=== PATIENT | female | born 1990 | race Caucasian/White ===

== ENCOUNTER 2017-06-20 00:21 | Emergency (ER) | payer OTHER ==
[~2017-06-20] VITALS: Ht 162.6 cm; Wt 88.0 kg
[2017-06-20] MEDS ORDERED: ZOFR20TA PO (00:32)
[2017-06-20] MEDS ORDERED: BENA25CA4 PO (00:32)
[2017-06-20] MEDS ORDERED: DULO30CA PO (00:32)
[2017-06-20] MEDS ORDERED: PRE-TAB3 PO (00:32)
[2017-06-20 01:23] LABS: BASO % 0.3 % (0.0-1.0); EOS # 0.2 10^3/uL (0.0-0.50); EOS % 1.7 % (0.0-3.0); IMMATURE GRANULOCYTE % 0.4 % (0-0); MEAN CORPUSCULAR HEMOGLOBIN 28.9 pg (27.0-33.0); MEAN CORPUSCULAR HGB CONC 33.4 g/dl (32.0-36.5); MEAN CORPUSCULAR VOLUME 86.6 fl (80.0-96.0); MONO # 0.6 10^3/uL (0.0-0.8); MONO % 5.5 % (0.0-5.0); NEUTROPHILS # 6.6 10^3/uL (1.8-7.7); NEUTROPHILS % 63.1 % (36.0-66.0); PLATELET COUNT, AUTOMATED 270 10^3/uL (150-450); RED CELL DISTRIBUTION WIDTH 12.3 % (11.5-14.5); WHITE BLOOD COUNT 10.4 10^3/uL (4.0-10.0)
[2017-06-20 03:31] VITALS: BP 110/53
--- NOTE | 2017-06-20 03:50 | REPUSA ---
CLINICAL HISTORY: Vaginal bleeding. TECHNIQUE: Transabdominal ultrasound of the pelvis was performed. FINDINGS: The uterus measures 7.9x4.2x5.6 cm. Anteverted uterus. Single intrauterine gestation. Grabill-rump length measures 7.3 mm. This corresponds to an estimated gestational age of 6 weeks and 5 days. Absent cardiac activity. Left lateral subchorionic hemorrhage measuring 3.5 cm. The right ovary measures 4.1x2.2x2.8 cm. The left ovary measures 3.5x2.3x2.9 cm. 1.8 cm left ovarian corpus luteum cyst. IMPRESSION: Single intrauterine gestation. Absent cardiac activity. Left lateral subchorionic hemorrhage. Left ovarian corpus luteum cyst.
== END 2017-06-20 03:32 | disposition home or self-care (01) ==
LOC: M ED 00:21
DX: O20.0 Threatened abortion (principal); Z3A.10 10 weeks gestation of pregnancy; Z79.899 Other long term (current) drug therapy; Z86.2 Personal history of diseases of the blood and blood-forming organs and certain disorders involving the immune mechanism; Z91.040 Latex allergy status; L23.1 Allergic contact dermatitis due to adhesives

== ENCOUNTER 2017-06-22 16:24 | Emergency (ER) | payer OTHER ==
[~2017-06-22] VITALS: Ht 162.6 cm; Wt 87.7 kg
[~2017-06-22 16:24] MED LIST: BENA25CA4 PO; DULO30CA PO; PRE-TAB3 PO; ZOFR20TA PO
[2017-06-22] MEDS ORDERED: TYLE1TAB5 PO (16:36)
[2017-06-22] MEDS ORDERED: PERCOCET 5MG/325MG TAB PO ONE (17:45)
[2017-06-22] MEDS ORDERED: ONDANSETRON 4 MG ORAL DISINTEGRATING TAB (S0181) PO ONE (17:45)
[2017-06-22 17:50] LABS: MEAN CORPUSCULAR HEMOGLOBIN 28.2 pg (27.0-33.0); MEAN CORPUSCULAR HGB CONC 32.6 g/dl (32.0-36.5); MEAN CORPUSCULAR VOLUME 86.6 fl (80.0-96.0); PLATELET COUNT, AUTOMATED 267 10^3/uL (150-450); RED CELL DISTRIBUTION WIDTH 12.3 % (11.5-14.5); WHITE BLOOD COUNT 8.9 10^3/uL (4.0-10.0)
[2017-06-22 18:01] LABS: CONTROL LINE HCG INT CTR LINE PRESENT
[2017-06-22 18:39] LABS: HCG, SERUM QUANTITATIVE 3380 MIU/ML
[2017-06-22 18:45] VITALS: BP 142/74
[2017-06-22] MEDS ORDERED: PERC5TAB12 PO (18:46)
[2017-06-22] MEDS ORDERED: OXYCODONE/APAP 5MG/325MG(BULK FOR ED) 1 TABLET PO ONE (19:00)
== END 2017-06-22 19:08 | disposition home or self-care (01) ==
LOC: M ED 16:24
DX: O03.4 Incomplete spontaneous abortion without complication (principal); Z79.899 Other long term (current) drug therapy; Z91.040 Latex allergy status; L23.1 Allergic contact dermatitis due to adhesives

== ENCOUNTER 2017-08-01 13:16 | Emergency (ER) | payer OTHER ==
[~2017-08-01] VITALS: Ht 163.8 cm; Wt 89.5 kg
[~2017-08-01 13:16] MED LIST changes: +PERC5TAB12 PO; +TYLE1TAB5 PO
[2017-08-01] MEDS ORDERED: SUDA30TA8 PO (13:54)
[2017-08-01] MEDS ORDERED: ACET1TAB17 PO (13:54)
[2017-08-01] MEDS ORDERED: NAPR500T3 PO (13:54)
[2017-08-01] MEDS ORDERED: MUCI600T37 PO (13:54)
[2017-08-01] MEDS ORDERED: CLON0.5T PO (13:54)
[2017-08-01] MEDS ORDERED: MORPHINE 4 MG/ML 1ML SYRINGE IV ONE (15:45)
[2017-08-01] MEDS ORDERED: METOCLOPRAMIDE INJ 10MG/2ML VIAL (J2765) IV ONE (15:45)
[2017-08-01 17:01] LABS: BASO % 0.5 % (0.0-1.0); EOS # 0.2 10^3/uL (0.0-0.50); EOS % 2.1 % (0.0-3.0); IMMATURE GRANULOCYTE % 0.3 % (0-0); LYMPH # 2.9 10^3/uL (1.5-6.5); LYMPH % 33.1 % (24.0-44.0); MEAN CORPUSCULAR HEMOGLOBIN 28.5 pg (27.0-33.0); MEAN CORPUSCULAR HGB CONC 32.6 g/dl (32.0-36.5); MEAN CORPUSCULAR VOLUME 87.2 fl (80.0-96.0); MONO # 0.6 10^3/uL (0.0-0.8); MONO % 6.5 % (0.0-5.0); NEUTROPHILS % 57.5 % (36.0-66.0); PLATELET COUNT, AUTOMATED 286 10^3/uL (150-450); RED CELL DISTRIBUTION WIDTH 12.5 % (11.5-14.5); WHITE BLOOD COUNT 8.7 10^3/uL (4.0-10.0)
[2017-08-01 17:16] LABS: ANION GAP 6 MEQ/L (8-16); BLOOD UREA NITROGEN 8 MG/DL (7-18); CALCIUM LEVEL 8.9 MG/DL (8.5-10.1); CARBON DIOXIDE LEVEL 30 MEQ/L (21-32); CHLORIDE LEVEL 105 MEQ/L (98-107); CREATININE FOR GFR 0.91 MG/DL (0.55-1.02); GLOMERULAR FILTRATION RATE > 60.0 (>60); GLUCOSE, FASTING 95 MG/DL (70-105); POTASSIUM SERUM 4.2 MEQ/L (3.5-5.1); SODIUM LEVEL 141 MEQ/L (136-145)
[2017-08-01 17:20] LABS: HCG, SERUM QUANTITATIVE < 1.0 MIU/ML
[2017-08-01 17:35] LABS: CONTROL LINE UCG INT CTR LINE PRESENT
--- NOTE | 2017-08-01 18:14 | REP ---
NON-OB PELVIC ULTRASOUND: HISTORY: Miscarriage. The uterus is normal in echogenicity. The uterus measure 5.6 cm in transverse x 3.7 cm in AP x 7 cm in cephalocaudal dimensions. The endometrium measures 13 mm. The right ovary measures 5.1 x 4.2 x 3.3 cm. A hemorrhagic cyst is present in the right ovary. The cyst measures 2.8 x 2.7 x 2.6 cm. The left ovary measures 2.4 x 2 x 3 cm. A small amount of free fluid is present in the cul-de-sac. IMPRESSION:1. There is minimal thickening of the endometrium. 2. Hemorrhagic right ovarian cyst. Signed by Abbe Saravia MD 08/01/2017 06:54 P
[2017-08-01] MEDS ORDERED: NORCOTAB PO (18:34)
[2017-08-01 18:36] VITALS: BP 127/69
== END 2017-08-01 18:42 | disposition home or self-care (01) ==
LOC: M ED 13:16
DX: N83.11 Corpus luteum cyst of right ovary (principal); Z91.040 Latex allergy status; Z91.048 Other nonmedicinal substance allergy status
CPT/HCPCS: 76830; 76856; 80048; 81001; 84702; 84703; 85025; 86140; 93976; 96374; 96375; 99284; J2765

== ENCOUNTER 2017-09-18 12:30 | Emergency (ER) | payer OTHER ==
[2017-09-18] MEDS: ACETAMINOPHEN TAB 650MG DOSE (2X325MG) PO (13:29)
[2017-09-18 13:39] LABS: HEMATOCRIT 37.6 % (36.0-47.0); HEMOGLOBIN 12.3 g/dl (12.0-16.0); MEAN CORPUSCULAR HEMOGLOBIN 28.5 pg (27.0-33.0); MEAN CORPUSCULAR HGB CONC 32.7 g/dl (32.0-36.5); MEAN CORPUSCULAR VOLUME 87.2 fl (80.0-96.0); PLATELET COUNT, AUTOMATED 264 10^3/uL (150-450); RED BLOOD COUNT 4.31 10^6/uL (4.00-5.40); WHITE BLOOD COUNT 7.6 10^3/uL (4.0-10.0)
[2017-09-18 14:12] LABS: HCG, SERUM QUANTITATIVE 4 MIU/ML
[2017-09-18 14:24] LABS: AMORPHOUS SEDIMENT RFX MODERATE (NEGATIVE); KETONE, URINE AUTO RFX NEGATIVE (NEGATIVE); LEUKOCYTE ESTERASE UR AUTO RFX NEGATIVE (NEGATIVE); NITRITE, URINE AUTO RFX NEGATIVE (NEGATIVE); RBC, URINE AUTO RFX 93 /HPF (0-3); SPECIFIC GRAVITY UR AUTO RFX 1.016 (1.002-1.035); SQUAM EPITHELIAL CELL UR AURFX 0 /HPF (0-6); WBC, URINE AUTO RFX 0 /HPF (0-3)
[2017-09-18 16:27] LABS: CHLAMYDIA DNA AMPLIFICATION NEGATIVE (NEGATIVE); GC DNA AMPLIFICATION NEGATIVE (NEGATIVE)
== END 2017-09-18 14:56 | disposition home or self-care (01) ==
LOC: M ED 12:30
DX: N93.9 Abnormal uterine and vaginal bleeding, unspecified (principal); Z79.899 Other long term (current) drug therapy; Z91.040 Latex allergy status; Z91.048 Other nonmedicinal substance allergy status
CPT/HCPCS: 76801

== ENCOUNTER 2018-01-27 11:17 | Emergency (ER) | payer OTHER ==
[2018-01-27 12:50] LABS: BASO % 0.2 % (0.0-1.0); EOS # 0.1 10^3/uL (0.0-0.50); EOS % 0.8 % (0.0-3.0); HEMATOCRIT 34.7 % (36.0-47.0); HEMOGLOBIN 11.7 g/dl (12.0-15.5); IMMATURE GRANULOCYTE % 0.6 % (0-3.0); LYMPH % 16.3 % (24.0-44.0); MEAN CORPUSCULAR HEMOGLOBIN 28.5 pg (27.0-33.0); MEAN CORPUSCULAR HGB CONC 33.7 g/dl (32.0-36.5); MEAN CORPUSCULAR VOLUME 84.4 fl (80.0-96.0); MONO # 0.7 10^3/uL (0.0-0.8); MONO % 5.3 % (0.0-5.0); NEUTROPHILS # 9.6 10^3/uL (1.8-7.7); NEUTROPHILS % 76.8 % (36.0-66.0); PLATELET COUNT, AUTOMATED 252 10^3/uL (150-450); RED BLOOD COUNT 4.11 10^6/uL (4.00-5.40); RED CELL DISTRIBUTION WIDTH 13.1 % (11.5-14.5); WHITE BLOOD COUNT 12.5 10^3/uL (4.0-10.0)
[2018-01-27 12:57] LABS: AMORPHOUS SEDIMENT RFX SMALL (NEGATIVE); KETONE, URINE AUTO RFX NEGATIVE (NEGATIVE); LEUKOCYTE ESTERASE UR AUTO RFX NEGATIVE (NEGATIVE); MUCUS, URINE RFX SMALL (NEGATIVE); NITRITE, URINE AUTO RFX NEGATIVE (NEGATIVE); RBC, URINE AUTO RFX 1 /HPF (0-3); SPECIFIC GRAVITY UR AUTO RFX 1.009 (1.002-1.035); SQUAM EPITHELIAL CELL UR AURFX 4 /HPF (0-6); WBC, URINE AUTO RFX 2 /HPF (0-3)
[2018-01-27 13:22] LABS: HCG, SERUM QUANTITATIVE 6689 MIU/ML
[2018-01-27] MEDS: NS 1,000 ML IV (17:37)
[2018-01-27] MEDS: MORPHINE 4 MG/ML 1ML VIAL/SYRINGE (J2270) IV (17:38)
== END 2018-01-27 18:31 | disposition home or self-care (01) ==
LOC: M ED 11:17
DX: O23.02 Infections of kidney in pregnancy, second trimester (principal); O26.892 Other specified pregnancy related conditions, second trimester; R10.2 Pelvic and perineal pain; Z3A.18 18 weeks gestation of pregnancy; Z91.040 Latex allergy status; Z91.048 Other nonmedicinal substance allergy status; Z79.899 Other long term (current) drug therapy
CPT/HCPCS: J2270

== ENCOUNTER 2018-04-27 14:57 | Outpatient (CLI) | payer OTHER ==
[2018-04-27] MEDS ORDERED: LR 1,000 ML IV ×2 (15:55)
[2018-04-27 18:32] LABS: CHLAMYDIA DNA AMPLIFICATION NEGATIVE (NEGATIVE); GC DNA AMPLIFICATION NEGATIVE (NEGATIVE)
== END 2018-04-27 17:38 | disposition home or self-care (01) ==
LOC: M LDO 14:57
DX: O26.893 Other specified pregnancy related conditions, third trimester (principal); Z3A.31 31 weeks gestation of pregnancy; R10.30 Lower abdominal pain, unspecified; N89.8 Other specified noninflammatory disorders of vagina; O44.23 Partial placenta previa NOS or without hemorrhage, third trimester
CPT/HCPCS: 76815; 87086

== ENCOUNTER 2018-06-16 06:26 | Inpatient (IN) | payer OTHER ==
[2018-06-16] MEDS: LACTATED RINGER'S 1000 ML IV (07:46)
[2018-06-16 08:04] LABS: BASO # 0.1 10^3/uL (0.0-0.2); BASO % 0.4 % (0.0-1.0); EOS # 0.1 10^3/uL (0.0-0.50); EOS % 0.8 % (0.0-3.0); HEMATOCRIT 36.6 % (36.0-47.0); HEMOGLOBIN 12.1 g/dl (12.0-15.5); IMMATURE GRANULOCYTE % 1.4 % (0-3.0); LYMPH # 3.4 10^3/uL (1.5-6.5); LYMPH % 20.7 % (24.0-44.0); MEAN CORPUSCULAR HEMOGLOBIN 28.3 pg (27.0-33.0); MEAN CORPUSCULAR HGB CONC 33.1 g/dl (32.0-36.5); MEAN CORPUSCULAR VOLUME 85.7 fl (80.0-96.0); MONO # 0.9 10^3/uL (0.0-0.8); MONO % 5.7 % (0.0-5.0); NEUTROPHILS # 11.6 10^3/uL (1.8-7.7); PLATELET COUNT, AUTOMATED 243 10^3/uL (150-450); RED BLOOD COUNT 4.27 10^6/uL (4.00-5.40); RED CELL DISTRIBUTION WIDTH 13.2 % (11.5-14.5); WHITE BLOOD COUNT 16.3 10^3/uL (4.0-10.0)
[2018-06-16] MEDS: LR 1,000 ML IV (10:15)
[2018-06-16] MEDS ORDERED: FENTANYL 2MCG/ML ROPIVACAINE 0.2% IN 0.9% NACL 200ML IVBAG As Ordered (11:12)
[2018-06-16] MEDS: FENTANYL/ROPIVACAINE/NACL BAG 200 ML EPIDURAL (11:50)
[2018-06-16] MEDS ORDERED: ONDANSETRON 4MG/2ML VIAL (J2405) IV (12:45)
[2018-06-16] MEDS ORDERED: ePHEDrine SULFATE 25 MG/5 ML(5MG/ML) SYRINGE IV (12:45)
[2018-06-16] MEDS ORDERED: NALOXONE INJ 0.4 MG/1 ML VIAL (J2310) IV (12:45)
[2018-06-16] MEDS ORDERED: diphenhydrAMINE INJ 50MG/ML VIAL (J1200) IV (12:45)
[2018-06-16] MEDS ORDERED: EPIDURAL COMMENT XX (12:45)
[2018-06-16] MEDS ORDERED: REFRIGERATOR IV KEYS XX (12:45)
[2018-06-16] MEDS ORDERED: LACTATED RINGER'S 1000 ML IV (12:45)
[2018-06-16] MEDS ORDERED: EPIDURAL/PCA KEYS XX (12:45)
[2018-06-16] MEDS: OXYTOCIN DRIP 30 UNITS in APPROPRIATE DILUENT 1 EA IV (12:51)
[2018-06-16] MEDS: OXYTOCIN INJ 10 UNITS/ML VIAL (J2590) IV (13:33)
[2018-06-16 13:50] LABS: CORD GAS ABE A 2.4; CORD GAS HCO3 A 30.3 MEQ/L; CORD GAS HCO3 V 21.8 MEQ/L; CORD GAS O2 SAT A 24.2 %; CORD GAS O2 SAT V 88.9 %; CORD GAS PCO2 A 60.3 mmHg; CORD GAS PH A 7.319 UNITS; CORD GAS PH V 7.413 UNITS; CORD GAS PO2 A 13.1 mmHg; CORD GAS PO2 V 40.8 mmHg; CORD GAS SBC A 24.6 MEQ/L; CORD GAS SBC V 22.6 MEQ/L; CORD GAS TCO2 A 32.2 MEQ/L; CORD GAS TCO2 V 22.9 MEQ/L
[2018-06-16] MEDS ORDERED: RHOGAM 300 MCG (1500 IU) INJ (J2790) IM (14:15)
[2018-06-16] MEDS ORDERED: MOM 30ML SUSPENSION UDC PO (14:15)
[2018-06-16] MEDS ORDERED: OXYTOCIN DRIP 30 UNITS in APPROPRIATE DILUENT 1 EA IV (14:15)
[2018-06-16] MEDS ORDERED: DOCUSATE SODIUM 100 MG CAP PO (14:15)
[2018-06-16] MEDS ORDERED: ANUSOL HC CREAM 30GM TOP (14:15)
[2018-06-16] MEDS ORDERED: METHYLERGONOVINE MALEATE 0.2 MG TAB PO (14:15)
[2018-06-16] MEDS ORDERED: MEASLES,MUMPS,RUBELLA VACCINE INJ (MMR-II) (90707) SC (14:15)
[2018-06-16] MEDS ORDERED: OXYTOCIN INJ 10 UNITS/ML VIAL (J2590) As Ordered (14:34)
[2018-06-16] MEDS: IBUPROFEN 800 MG TAB PO (16:00)
[2018-06-16] MEDS: DIBUCAINE 1% OINTMENT 30GM TOP (16:51)
[2018-06-16] MEDS: ACETAMINOPHEN 500 MG TAB PO (17:35)
[2018-06-16] MEDS ORDERED: SLF 3 ML SYR IV (19:45)
[2018-06-16] MEDS: SLF 3 ML SYR IV (22:30)
[2018-06-17] MEDS: IBUPROFEN 800 MG TAB PO ×2 (00:17→07:43)
[2018-06-17] MEDS: ACETAMINOPHEN 500 MG TAB PO (04:41)
[2018-06-17] MEDS: SLF 3 ML SYR IV ×2 (06:00→14:47)
[2018-06-17 06:58] LABS: HEMATOCRIT 32.7 % (36.0-47.0); HEMOGLOBIN 10.8 g/dl (12.0-15.5); MEAN CORPUSCULAR HEMOGLOBIN 28.3 pg (27.0-33.0); MEAN CORPUSCULAR VOLUME 85.6 fl (80.0-96.0); PLATELET COUNT, AUTOMATED 206 10^3/uL (150-450); RED BLOOD COUNT 3.82 10^6/uL (4.00-5.40); RED CELL DISTRIBUTION WIDTH 13.3 % (11.5-14.5); WHITE BLOOD COUNT 14.5 10^3/uL (4.0-10.0)
[2018-06-17] MEDS: PRENATAL VITAMINS CHEWABLE TABLET PO (07:42)
[2018-06-17] MEDS: oxyCODONE 5MG TAB PO ×2 (10:19→14:47)
== END 2018-06-17 17:30 | disposition home or self-care (01) | DRG 775 ==
LOC: M LDO 06:26 → M LDI 07:00 → M OBS 16:26
PROVIDERS: Obstetrics & Gynecology
PROC: 10E0XZZ Delivery of Products of Conception, External Approach (ICD-10-PCS; principal; 2018-06-16)
DX: O62.3 Precipitate labor (principal); E66.9 Obesity, unspecified; Z68.37 Body mass index [BMI] 37.0-37.9, adult; Z3A.38 38 weeks gestation of pregnancy; O99.344 Other mental disorders complicating childbirth; F32.9 Major depressive disorder, single episode, unspecified; O99.214 Obesity complicating childbirth; O69.81X0 Labor and delivery complicated by cord around neck, without compression, not applicable or unspecified; Z37.0 Single live birth

== ENCOUNTER 2018-07-09 07:23 | Emergency (ER) | payer OTHER ==
[2018-07-09] MEDS ORDERED: diphenhydrAMINE 25 MG CAP PO (08:00)
[2018-07-09] MEDS: KETOROLAC 30 MG/ML VIAL (J1885) IV (08:10)
[2018-07-09] MEDS: NS 1,000 ML IV (08:10)
[2018-07-09] MEDS: METOCLOPRAMIDE INJ 10MG/2ML VIAL (J2765) IV (08:10)
[2018-07-09] MEDS: diphenhydrAMINE 50 MG CAP PO (08:10)
== END 2018-07-09 09:45 | disposition home or self-care (01) ==
LOC: M ED 07:23
DX: O99.355 Diseases of the nervous system complicating the puerperium (principal); G43.909 Migraine, unspecified, not intractable, without status migrainosus; Z82.0 Family history of epilepsy and other diseases of the nervous system
CPT/HCPCS: J1885

== ENCOUNTER 2020-01-12 13:43 | Emergency (ER) | payer OTHER ==
[~2020-01-12] VITALS: Ht 162.6 cm; Wt 103.2 kg
[~2020-01-12 13:43] MED LIST changes: +ACET1TAB55 PO; +CLON0.5T2 PO; +COLA100C5 PO; -DULO30CA PO; +DULO30CA9 PO; +HYDR-3715 PO; +IBUP-1114 PO; +KEFL500C17 PO; +MAPA500T2 PO; +MUCI600T37 PO; +NAPR-885 PO; +NORE0.353; +PROM50TA4 PO; +SERT25TA21; +SUDA30TA8 PO; -ZOFR20TA PO; +ZOFR4TAB16 PO; +ZOLO25TA PO
[2020-01-12] MEDS ORDERED: TOPA100T12 PO (13:54)
[2020-01-12] MEDS ORDERED: BUSP5TA PO (13:54)
[2020-01-12] MEDS ORDERED: SUMA100T2 PO (13:54)
[2020-01-12] MEDS ORDERED: KETOROLAC TROMETHAMINE 10 MG TAB PO ONE (14:15)
[2020-01-12 14:24] LABS: BASO % 0.2 % (0.0-1.0); EOS # 0.1 10^3/uL (0.0-0.5); EOS % 1.2 % (0.0-3.0); HEMATOCRIT 37.8 % (36.0-47.0); HEMOGLOBIN 11.9 g/dl (12.0-15.5); LYMPH # 2.6 10^3/uL (1.5-5.0); LYMPH % 25.4 % (24.0-44.0); MEAN CORPUSCULAR HEMOGLOBIN 26.9 pg (27.0-33.0); MEAN CORPUSCULAR HGB CONC 31.5 g/dl (32.0-36.5); MEAN CORPUSCULAR VOLUME 85.5 fl (80.0-96.0); MONO # 0.6 10^3/uL (0.0-0.8); MONO % 5.6 % (0.0-5.0); NEUTROPHILS # 6.8 10^3/uL (1.5-8.5); NEUTROPHILS % 67.2 % (36.0-66.0); PLATELET COUNT, AUTOMATED 302 10^3/uL (150-450); RED BLOOD COUNT 4.42 10^6/uL (4.00-5.40); WHITE BLOOD COUNT 10.1 10^3/uL (4.0-10.0)
--- NOTE | 2020-01-12 14:52 | REP ---
CT ABDOMEN AND PELVIS WITHOUT IV OR ORAL CONTRAST: HISTORY: Bilateral flank pain and hematuria. Renal stone protocol study. CT FINDINGS: Preliminary digital sign builder radiograph is unremarkable. Normal bowel gas pattern is seen. The lung bases are clear on axial CT images. The liver and the spleen are normal in size homogeneous in texture. There are granulomatous calcifications in the spleen. No focal hepatic lesion is seen. No abnormality is noted in the pancreas. Normal adrenal glands are present. No abnormality is noted in the gallbladder. No retroperitoneal mass or adenopathy is observed. There is no evidence of hydronephrosis or intrarenal calculus on either side. No renal mass lesion is seen. 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 There appears to be a single distal ureter on the left. No ureteral or bladder calculus is seen. No uterine or ovarian abnormality is observed. There is a tiny sliver of cul-de-sac fluid, likely physiologic. No abdominal wall defect. There are surgical clips adjacent to the cecum consistent with previous appendectomy. Small and large bowel loops are otherwise unremarkable. IMPRESSION: No urinary tract calculus or hydronephrosis seen. There is a tiny sliver of physiologic fluid in the cul-de-sac. No uterine or ovarian abnormality. Post appendectomy. Otherwise negative. Electronically Signed by Jos Carson MD 01/12/2020 07:35 P
[2020-01-12] MEDS ORDERED: CIPR-249 PO (15:45)
[2020-01-12 15:47] VITALS: BP 123/77
== END 2020-01-12 15:51 | disposition home or self-care (01) ==
LOC: M ED 13:43
DX: N39.0 Urinary tract infection, site not specified (principal); F33.9 Major depressive disorder, recurrent, unspecified; F41.9 Anxiety disorder, unspecified; E66.9 Obesity, unspecified; Z79.899 Other long term (current) drug therapy; Z91.040 Latex allergy status; Z91.048 Other nonmedicinal substance allergy status

== ENCOUNTER 2020-04-10 16:40 | Emergency (ER) | payer OTHER ==
[~2020-04-10 16:40] MED LIST changes: +BUSP5TA PO; +CIPR-249 PO; +MORPHINE 4 MG/ML 1ML VIAL/SYRINGE (J2270) As Ordered ONE; +MORPHINE 4 MG/ML 1ML VIAL/SYRINGE (J2270) ONE; +ONDANSETRON 4MG/2ML VIAL As Ordered ONE; +ONDANSETRON 4MG/2ML VIAL ONE; +SUMA100T2 PO; +TOPA100T12 PO
[2020-04-10] MEDS ORDERED: ISOVUE-370 76% 100ML VIAL As Ordered ONE (19:23)
[2020-04-10] MEDS ORDERED: KETOROLAC 30 MG/ML 1ML VIAL ONE (19:25)
[2020-04-10] MEDS ORDERED: KETOROLAC 30 MG/ML 1ML VIAL As Ordered ONE (19:25)
[2020-05-21 10:25] LABS: CHLAMYDIA DNA AMPLIFICATION NEGATIVE (NEGATIVE); GC DNA AMPLIFICATION NEGATIVE (NEGATIVE)
[2020-05-25 10:12] LABS: BASO % 0.2 % (0.0-1.0); EOS # 0.1 10^3/uL (0.0-0.5); EOS % 1.5 % (0.0-3.0); HEMATOCRIT 43.1 % (36.0-47.0); HEMOGLOBIN 13.4 g/dl (12.0-15.5); LYMPH % 32.9 % (24.0-44.0); MEAN CORPUSCULAR HEMOGLOBIN 27.3 pg (27.0-33.0); MEAN CORPUSCULAR HGB CONC 31.1 g/dl (32.0-36.5); MONO # 0.6 10^3/uL (0.0-0.8); MONO % 6.9 % (0.0-5.0); NEUTROPHILS # 5.2 10^3/uL (1.5-8.5); NEUTROPHILS % 58.2 % (36.0-66.0); PLATELET COUNT, AUTOMATED 282 10^3/uL (150-450)
[2020-05-25 11:22] LABS: APPEARANCE, URINE HAZY (CLEAR); BACTERIA, URINE AUTO 1+ (NEGATIVE); BILIRUBIN, URINE AUTO NEGATIVE (NEGATIVE); BLOOD, URINE BLOOD NEGATIVE (NEGATIVE); COLOR, URINE YELLOW (YELLOW); GLUCOSE, URINE (UA) AUTO NEGATIVE (NEGATIVE); KETONE, URINE AUTO NEGATIVE (NEGATIVE); LEUKOCYTE ESTERASE, URINE AUTO NEGATIVE (NEGATIVE); MUCUS, URINE SMALL (NEGATIVE); NITRITE, URINE AUTO NEGATIVE (NEGATIVE); PROTEIN, URINE AUTO NEGATIVE (NEGATIVE); RBC, URINE AUTO 1 /HPF (0-3); SPECIFIC GRAVITY URINE AUTO 1.011 (1.002-1.035); SQUAMOUS EPITHELIAL CELL UR AU 5 /HPF (0-6); UROBILINOGEN, URINE AUTO 0.2 mg/dL (0.0-2.0); WBC, URINE AUTO 2 /HPF (0-3)
[2020-06-08] MEDS ORDERED: VITA50TA43 PO (15:05)
[2020-06-08] MEDS ORDERED: IRON27TA2 PO (15:05)
[2020-06-08] MEDS ORDERED: D31000TA2 PO (15:05)
[2020-06-24 20:59] LABS: ALBUMIN 4.3 GM/DL (3.2-5.2); ALT/SGPT 13 U/L (12-78); BILIRUBIN,DIRECT 0.1 MG/DL (0.0-0.2); BILIRUBIN,TOTAL 0.4 MG/DL (0.2-1.0); BLOOD UREA NITROGEN 13 MG/DL (7-18); CALCIUM LEVEL 9.1 MG/DL (8.5-10.1); CARBON DIOXIDE LEVEL 27 MEQ/L (21-32); CHLORIDE LEVEL 109 MEQ/L (98-107); CREATININE FOR GFR 1.09 MG/DL (0.55-1.30); GLOMERULAR FILTRATION RATE > 60.0 (>60); GLUCOSE, FASTING 82 MG/DL (70-100); HCG, SERUM QUALITATIVE NEGATIVE (NEGATIVE); POTASSIUM SERUM 4.2 MEQ/L (3.5-5.1); SODIUM LEVEL 140 MEQ/L (136-145); TOTAL PROTEIN 7.4 GM/DL (6.4-8.2)
== END 2020-04-10 20:48 | disposition home or self-care (01) ==
LOC: M ED 16:40
DX: N83.201 Unspecified ovarian cyst, right side (principal); R11.0 Nausea; F32.9 Major depressive disorder, single episode, unspecified; Z87.440 Personal history of urinary (tract) infections; Z79.899 Other long term (current) drug therapy
CPT/HCPCS: 74177; 80048; 80076; 81001; 84703; 85025; 87086; 87210; 87661; 96361; 96374; 96375; 99284; J1885; J2270; J2405; Q9967

== ENCOUNTER 2020-05-07 13:39 | Emergency (ER) | payer OTHER ==
[~2020-05-07] VITALS: Ht 162.6 cm; Wt 92.8 kg
[~2020-05-07 13:39] MED LIST changes: -MORPHINE 4 MG/ML 1ML VIAL/SYRINGE (J2270) As Ordered ONE; -MORPHINE 4 MG/ML 1ML VIAL/SYRINGE (J2270) ONE; -ONDANSETRON 4MG/2ML VIAL As Ordered ONE; -ONDANSETRON 4MG/2ML VIAL ONE
[2020-05-07] MEDS ORDERED: SERT-138 PO (14:03)
[2020-05-07] MEDS ORDERED: IBUP1TAB7 PO (14:03)
[2020-05-07] MEDS ORDERED: CLON0.5T17 PO (14:03)
[2020-05-07] MEDS ORDERED: NAPR500T6 PO (14:03)
[2020-05-07] MEDS ORDERED: TIZA4CAP PO (14:03)
[2020-05-07] MEDS ORDERED: diphenhydrAMINE 50MG/ML VIAL (J1200) IV ONE (16:00)
[2020-05-07] MEDS ORDERED: KETOROLAC 30 MG/ML 1ML VIAL IV ONE (16:00)
[2020-05-07] MEDS ORDERED: ONDANSETRON 4MG/2ML VIAL IV ONE (16:00)
[2020-05-07] MEDS ORDERED: NS 1,000 ML IV ONE (16:00)
[2020-05-07 16:34] LABS: BASO % 0.4 % (0.0-1.0); EOS # 0.2 10^3/uL (0.0-0.5); HEMATOCRIT 37.6 % (36.0-47.0); LYMPH # 2.6 10^3/uL (1.5-5.0); LYMPH % 31.2 % (24.0-44.0); MEAN CORPUSCULAR HGB CONC 31.9 g/dl (32.0-36.5); MEAN CORPUSCULAR VOLUME 87.9 fl (80.0-96.0); MONO # 0.6 10^3/uL (0.0-0.8); MONO % 6.6 % (0.0-5.0); NEUTROPHILS % 59.6 % (36.0-66.0); PLATELET COUNT, AUTOMATED 249 10^3/uL (150-450); RED BLOOD COUNT 4.28 10^6/uL (4.00-5.40); WHITE BLOOD COUNT 8.4 10^3/uL (4.0-10.0)
[2020-05-07 17:04] LABS: ALT/SGPT 13 U/L (12-78); BILIRUBIN,DIRECT < 0.1 MG/DL (0.0-0.2); BILIRUBIN,TOTAL 0.3 MG/DL (0.2-1.0); BLOOD UREA NITROGEN 13 MG/DL (7-18); CALCIUM LEVEL 9.1 MG/DL (8.5-10.1); CARBON DIOXIDE LEVEL 26 MEQ/L (21-32); CHLORIDE LEVEL 110 MEQ/L (98-107); CREATININE FOR GFR 1.36 MG/DL (0.55-1.30); GLOMERULAR FILTRATION RATE 49.3 (>60); GLUCOSE, FASTING 81 MG/DL (70-100); MAGNESIUM LEVEL 2.2 MG/DL (1.8-2.4); POTASSIUM SERUM 4.4 MEQ/L (3.5-5.1); SODIUM LEVEL 140 MEQ/L (136-145); THYROID STIMULATING HORMONE 0.878 uIU/ML (0.358-3.740); TOTAL PROTEIN 6.9 GM/DL (6.4-8.2)
--- NOTE | 2020-05-07 17:39 | REPVR ---
PROCEDURE INFORMATION: Exam: CT Head Without Contrast Exam date and time: 05/07/2020 4:59 PM Age: 30 years old Clinical indication: Pain; Headache not specified; Additional info: Headache/numbness left arm TECHNIQUE: Imaging protocol: Computed tomography of the head without contrast. Axial and coronal reformatted images were created and reviewed. Radiation optimization: All CT scans at this facility use at least one of these dose optimization techniques: automated exposure control; mA and/or kV adjustment per patient size (includes targeted exams where dose is matched to clinical indication); or iterative reconstruction. COMPARISON: No relevant prior studies available. FINDINGS: Brain: No CT evidence of acute intracranial hemorrhage or acute territorial infarction. No significant mass effect or midline shift. Basal cisterns patent. Ventricles: Normal in size and configuration. Bones/joints: No acute osseous abnormality. Sinuses: Grossly unremarkable. Mastoid air cells: Grossly unremarkable. Soft tissues: Grossly unremarkable. IMPRESSION: No CT evidence of acute intracranial pathology. Electronically signed by: Jamey العراقي On 05/07/2020 17:39:30 PM
[2020-05-07] MEDS ORDERED: LORazepam 2 MG/ML VIAL IV STA (18:16)
--- NOTE | 2020-05-07 18:25 | REPVR ---
PROCEDURE INFORMATION: Exam: CT Cervical Spine Without Contrast Exam date and time: 05/07/2020 6:16 PM Age: 30 years old Clinical indication: Other: Neck pain/hx chiari malformation TECHNIQUE: Imaging protocol: Computed tomography images of the cervical spine without contrast. Axial, coronal and sagittal reformatted images were created and reviewed. Radiation optimization: All CT scans at this facility use at least one of these dose optimization techniques: automated exposure control; mA and/or kV adjustment per patient size (includes targeted exams where dose is matched to clinical indication); or iterative reconstruction. COMPARISON: No relevant prior studies available. FINDINGS: Vertebrae: Mild reversal of the normal cervical lordosis. Alignment anatomic. No CT evidence of acute fracture, dislocation or subluxation. Vertebral body heights maintained. Discs/Spinal canal/Neural foramina: Intervertebral disc spaces preserved. No significant spinal canal or neural foraminal stenosis. Soft tissues: Grossly unremarkable. Lungs: Grossly unremarkable. IMPRESSION: 1. No CT evidence of acute cervical spine pathology. 2. Additional findings, as above. Electronically signed by: Jamey العراقي On 05/07/2020 18:24:46 PM
[2020-05-07] MEDS ORDERED: VALPROATE SOD INJ 1,000 MG in D5W 50 ML IV ONE (18:30)
[2020-05-07] MEDS ORDERED: PROP10TA56 PO (20:38)
[2020-05-07 21:28] VITALS: BP 115/78
[2020-06-08] MEDS ORDERED: IRON27TA2 PO (15:05)
[2020-06-08] MEDS ORDERED: D31000TA2 PO (15:05)
[2020-06-08] MEDS ORDERED: VITA50TA43 PO (15:05)
== END 2020-05-07 21:32 | disposition home or self-care (01) ==
LOC: M ED 13:39
DX: G43.909 Migraine, unspecified, not intractable, without status migrainosus (principal); F41.9 Anxiety disorder, unspecified; F33.9 Major depressive disorder, recurrent, unspecified; Q07.00 Arnold-Chiari syndrome without spina bifida or hydrocephalus; Z91.040 Latex allergy status; Z91.048 Other nonmedicinal substance allergy status; Z79.899 Other long term (current) drug therapy
CPT/HCPCS: 36415; 70450; 72125; 80048; 80076; 83735; 84439; 84443; 84702; 85025; 96361; 96365; 96375; 99284; J1200; J1885; J2060; J2405

== ENCOUNTER 2020-06-13 12:05 | Day surgery (SDC) | payer OTHER ==
[~2020-06-13] VITALS: Ht 162.6 cm; Wt 92.1 kg
[~2020-06-13 12:05] MED LIST changes: +CLON0.5T17 PO; +D31000TA2 PO; +IBUP1TAB7 PO; +IRON27TA2 PO; +LR 1,000 ML IV ONE; +NAPR500T6 PO; +PROP10TA56 PO; +SERT-138 PO; +TIZA4CAP PO; +VITA50TA43 PO
[2020-06-13 12:40] LABS: HEMATOCRIT 37.7 % (36.0-47.0); MEAN CORPUSCULAR HEMOGLOBIN 27.7 pg (27.0-33.0); MEAN CORPUSCULAR HGB CONC 31.8 g/dl (32.0-36.5); MEAN CORPUSCULAR VOLUME 87.1 fl (80.0-96.0); PLATELET COUNT, AUTOMATED 244 10^3/uL (150-450); RED BLOOD COUNT 4.33 10^6/uL (4.00-5.40); WHITE BLOOD COUNT 7.4 10^3/uL (4.0-10.0)
[2020-06-13] MEDS ORDERED: KETOROLAC 60MG 2ML VIAL As Ordered ONE (12:45)
[2020-06-13] MEDS ORDERED: ONDANSETRON 4MG/2ML VIAL As Ordered ONE (12:45)
[2020-06-13] MEDS ORDERED: fentaNYL 100 MCG/2 ML INJECTION (J3010) As Ordered ONE (12:45)
[2020-06-13] MEDS ORDERED: MIDAZOLAM INJ 2MG/2ML VIAL (J2250 PER 1MG) As Ordered ONE (12:45)
[2020-06-13] MEDS ORDERED: LIDOCAINE 2% 100MG/5ML SDV (FOR ANES.) As Ordered ONE (12:46)
[2020-06-13] MEDS ORDERED: ROCURONIUM BROMIDE 50 MG/5 ML VIAL As Ordered ONE (12:46)
[2020-06-13] MEDS ORDERED: SUGAMMADEX SODIUM 500 MG/5 ML VIAL (BRIDION) As Ordered ONE (12:46)
[2020-06-13] MEDS ORDERED: propofoL 200 MG/20 ML VIAL As Ordered ONE (12:46)
[2020-06-13] MEDS ORDERED: dexameTHASONE 4 MG/ML 1ML VIAL (J1100 PER 1MG) As Ordered ONE (12:46)
[2020-06-13 13:15] LABS: BLOOD UREA NITROGEN 10 MG/DL (7-18); CARBON DIOXIDE LEVEL 27 MEQ/L (21-32); CHLORIDE LEVEL 109 MEQ/L (98-107); CREATININE FOR GFR 0.87 MG/DL (0.55-1.30); GLOMERULAR FILTRATION RATE > 60.0 (>60); GLUCOSE, FASTING 94 MG/DL (70-100); HCG, SERUM QUANTITATIVE < 1.0 MIU/ML; POTASSIUM SERUM 4.1 MEQ/L (3.5-5.1); SODIUM LEVEL 141 MEQ/L (136-145)
[2020-06-13] MEDS ORDERED: BUPIVACAINE HCL 0.5% 10ML VIAL As Ordered ONE (13:17)
[2020-06-13] MEDS ORDERED: ACETAMINOPHEN 650 MG SUPP As Ordered ONE (13:17)
[2020-06-13] MEDS ORDERED: HYDROmorphone HCL 2 MG/ML 1ML VIAL (J1170) As Ordered ONE (14:09)
[2020-06-13] MEDS ORDERED: PHENYLephrine HCL 500 MCG/5 ML (100MCG/ML) SYRINGE (J2370) As Ordered ONE (14:13)
[2020-06-13] MEDS ORDERED: LACRILUBE (AKWA TEARS) OPHTH OINT 3.5 GM As Ordered ONE (14:23)
[2020-06-13] MEDS ORDERED: ONDANSETRON 4MG/2ML VIAL IV PRN (15:30)
[2020-06-13] MEDS ORDERED: fentaNYL 100 MCG/2 ML INJECTION (J3010) IV PRN (15:30)
[2020-06-13] MEDS ORDERED: LR 1,000 ML IV SCH (15:30)
[2020-06-13] MEDS ORDERED: KETOROLAC 30 MG/ML 1ML VIAL IV PRN (15:30)
[2020-06-13] MEDS ORDERED: HYDROMORPHONE HCL 0.5 MG/ 0.5 ML SYRINGE (J1170 PER 1) IV PRN (15:30)
[2020-06-13] MEDS: oxyCODONE 5MG TAB PO PRN ×2 (15:31→16:35)
[2020-06-13 17:00] VITALS: BP 128/60
== END 2020-06-13 17:00 | disposition home or self-care (01) ==
LOC: M SDC 12:05
PROVIDERS: ATTEND Obstetrics & Gynecology
DX: Z30.2 Encounter for sterilization (principal); F43.10 Post-traumatic stress disorder, unspecified; D64.9 Anemia, unspecified; G43.909 Migraine, unspecified, not intractable, without status migrainosus; F41.9 Anxiety disorder, unspecified; F32.9 Major depressive disorder, single episode, unspecified; Z91.040 Latex allergy status
CPT/HCPCS: 36415; 58661; 80048; 84702; 85027; 88302; J1100; J1170; J1885; J2250; J2370; J2405; J3010

== ENCOUNTER 2020-06-15 11:18 | Emergency (ER) | payer OTHER ==
[~2020-06-15] VITALS: Ht 162.6 cm; Wt 95.3 kg
[~2020-06-15 11:18] MED LIST changes: -LR 1,000 ML IV ONE
[2020-06-15] MEDS ORDERED: SCOP1PAT2 (11:27)
[2020-06-15] MEDS ORDERED: ONDA4TAB6 (11:27)
[2020-06-15] MEDS ORDERED: OXYC1TAB23 (11:27)
[2020-06-15] MEDS ORDERED: NS 1,000 ML IV ONE (13:15)
[2020-06-15] MEDS ORDERED: ONDANSETRON 4MG/2ML VIAL IV ONE (13:15)
[2020-06-15] MEDS ORDERED: MORPHINE 4 MG/ML 1ML VIAL/SYRINGE (J2270) IV ONE (13:15)
[2020-06-15 13:42] LABS: BASO % 0.3 % (0.0-1.0); EOS # 0.3 10^3/uL (0.0-0.5); EOS % 2.5 % (0.0-3.0); HEMATOCRIT 37.3 % (36.0-47.0); HEMOGLOBIN 11.5 g/dl (12.0-15.5); LYMPH % 27.9 % (24.0-44.0); MEAN CORPUSCULAR HEMOGLOBIN 27.4 pg (27.0-33.0); MEAN CORPUSCULAR HGB CONC 30.8 g/dl (32.0-36.5); MONO # 0.7 10^3/uL (0.0-0.8); MONO % 6.3 % (0.0-5.0); NEUTROPHILS # 6.7 10^3/uL (1.5-8.5); NEUTROPHILS % 62.7 % (36.0-66.0); PLATELET COUNT, AUTOMATED 231 10^3/uL (150-450); RED BLOOD COUNT 4.19 10^6/uL (4.00-5.40); WHITE BLOOD COUNT 10.6 10^3/uL (4.0-10.0)
[2020-06-15] MEDS ORDERED: ISOVUE-370 76% 100ML VIAL As Ordered ONE (13:48)
[2020-06-15 13:56] LABS: INR 0.96
[2020-06-15 14:13] LABS: ALBUMIN 3.9 GM/DL (3.2-5.2); BILIRUBIN,DIRECT 0.1 MG/DL (0.0-0.2); BILIRUBIN,TOTAL 0.3 MG/DL (0.2-1.0); THYROID STIMULATING HORMONE 0.525 uIU/ML (0.358-3.740); THYROXINE (T4) 15.2 UG/DL (4.5-12.0); TOTAL PROTEIN 7.1 GM/DL (6.4-8.2)
--- NOTE | 2020-06-15 14:28 | REPVR ---
PROCEDURE INFORMATION: Exam: XR Chest, 2 Views Exam date and time: 06/15/2020 1:57 PM Age: 30 years old Clinical indication: Cough; Additional info: Dyspnea/cough TECHNIQUE: Imaging protocol: XR of the chest Views: 2 views. COMPARISON: No relevant prior studies available. FINDINGS: Lungs: The lungs appear clear. Pleural space: Unremarkable. No pleural effusion. No pneumothorax. Heart/Mediastinum: The heart is normal in size. There is a calcified lymph node in the left paratracheal region and also a calcified granuloma in the right upper lung. Diaphragm: There is a moderate amount of pneumoperitoneum below the right hemidiaphragm and a small amount pneumoperitoneum below the left hemidiaphragm. The patient had surgery 2 days ago and this air is probably from the surgery. However this information was called and would have to be correlated with the patient's symptoms and history. Bones/joints: There is no evidence of bony abnormality. IMPRESSION: There is significant pneumoperitoneum.Findings were discussed with FARIDA WHITING at 06/15/2020 2:20 PM EDT. Electronically signed by: Arnav Medina On 06/15/2020 14:28:18 PM
--- NOTE | 2020-06-15 14:50 | REPVR ---
PROCEDURE INFORMATION: Exam: CT Angiography Chest With Contrast Exam date and time: 06/15/2020 2:13 PM Age: 30 years old Clinical indication: Shortness of breath; Additional info: Shortness of breath, pleuritic cp, recent surgery TECHNIQUE: Imaging protocol: Computed tomographic angiography of the chest with intravenous contrast. 3D rendering (Not supervised by radiologist): MIP and/or 3D reconstructed images were created by the technologist. Radiation optimization: All CT scans at this facility use at least one of these dose optimization techniques: automated exposure control; mA and/or kV adjustment per patient size (includes targeted exams where dose is matched to clinical indication); or iterative reconstruction. Contrast material: ISOVUE 370; Contrast volume: 75 ml; Contrast route: INTRAVENOUS (IV); COMPARISON: CR Chest, 2 view PA, Lat 06/15/2020 1:44 PM FINDINGS: Pulmonary arteries: There is opacification of the pulmonary arteries with no evidence of pulmonary embolus. Aorta: There is opacification of the aorta which appears intact. Lungs: There is a 5 mm round density right upper lung probably a partially calcified granuloma. The lungs are otherwise clear. Pleural space: Unremarkable. No pneumothorax. No pleural effusion. Heart: The heart is normal in size. Lymph nodes: There are calcified lymph nodes left paratracheal region and left hilar region. Gallbladder and bile ducts: Normal gallbladder. Intraperitoneal space: There is a moderate amount of pneumoperitoneum below the diaphragm. The patient had surgery 2 days ago which may explain the pneumoperitoneum. This was immediately called when identified on the chest radiograph. Bones/joints: There is no evidence of bony abnormality. Soft tissues: Unremarkable. IMPRESSION: 1. There is moderate pneumoperitoneum. 2. There is no evidence of pulmonary embolus. Electronically signed by: Arnav Medina On 06/15/2020 14:50:18 PM
[2020-06-15 16:01] VITALS: BP 107/57
--- NOTE | 2020-06-15 19:35 | ECGEPIP ---
[facility] - ED Test Date: 2020-06-15 Pat Name: LEXX JULIO Department: Room: - Gender: Female Connie Cleaner: VANCE : 1990 Requested By: Dolores Vann Order Number: [id number] Reading MD: Manish Jo Measurements Intervals [place] Rate: 80 P: 41 TN: 174 QRS: 12 QRSD: 90 T: 10 QT: 362 QTc: 418 Interpretive Statements SINUS RHYTHM WITH SINUS ARRHYTHMIA NONSPECIFIC T WAVE ABNORMALITY(S) NO PRIORS FOR COMPARISON Electronically Signed on 06-15-2020 19:35:22 EDT by Manish Jo
== END 2020-06-15 16:00 | disposition home or self-care (01) ==
LOC: M ED 11:18
DX: G89.18 Other acute postprocedural pain (principal); Z98.51 Tubal ligation status; R07.89 Other chest pain; R06.02 Shortness of breath; D64.9 Anemia, unspecified; F41.9 Anxiety disorder, unspecified; F32.9 Major depressive disorder, single episode, unspecified; G93.5 Compression of brain; Z91.048 Other nonmedicinal substance allergy status; Z91.040 Latex allergy status; Z79.899 Other long term (current) drug therapy; Z79.1 Long term (current) use of non-steroidal anti-inflammatories (NSAID); Z79.891 Long term (current) use of opiate analgesic
CPT/HCPCS: 36415; 71046; 71275; 80047; 80076; 84436; 84443; 84484; 85025; 85610; 93005; 96374; 96375; 99284; J2270; J2405; Q9967

== ENCOUNTER 2020-09-15 15:31 | Emergency (ER) | payer OTHER ==
[~2020-09-15] VITALS: Ht 162.6 cm; Wt 99.9 kg
[~2020-09-15 15:31] MED LIST changes: +ONDA4TAB6; +OXYC1TAB23; +SCOP1PAT2
--- OUTSIDE RECORDS SUMMARY | 2020-09-15 15:46 | CCD ---
Author Author [facility] Organization [facility] Address Unknown Phone Unavailable Care Team Providers Care Seafood Process Worker Name Role Phone Catherine Sheppard MD Unavailable Unavailable Catherine Sheppard MD Unavailable Unavailable Catherine Sheppard MD Unavailable Unavailable Catherine Sheppard MD Unavailable Unavailable Catherine Sheppard MD Unavailable Unavailable Catherine Sheppard MD Unavailable Unavailable Catherine Sheppard MD Unavailable Unavailable Catherine Sheppard MD Unavailable Unavailable Catherine Sheppard MD Unavailable Unavailable Catherine Sheppard MD Unavailable Unavailable Catherine Sheppard MD Unavailable Unavailable Catherine Sheppard MD Unavailable Unavailable Catherine Sheppard MD Unavailable Unavailable Catherine Sheppard MD Unavailable Unavailable Catherine Sheppard MD Unavailable Unavailable Catherine Sheppard MD Unavailable Unavailable Catherine Sheppard MD Unavailable Unavailable Catherine Sheppard MD Unavailable Unavailable Catherine Sheppard MD Unavailable Unavailable Catherine Sheppard MD Unavailable Unavailable Catherine Sheppard MD Unavailable Unavailable Catherine Sheppard MD Unavailable Unavailable Catherine Sheppard MD Unavailable Unavailable Catherine Sheppard MD Unavailable Unavailable Catherine Sheppard MD Unavailable Unavailable Catherine Sheppard MD Unavailable Unavailable Catherine Sheppard MD Unavailable Unavailable Catherine Sheppard MD Unavailable Unavailable Catherine Sheppard MD Unavailable Unavailable Catherine Sheppard MD Unavailable Unavailable Catherine Sheppard MD Unavailable Unavailable Catherine Sheppard MD Unavailable Unavailable Catherine Sheppard MD Unavailable Unavailable Catherine Sheppard MD Unavailable Unavailable Catherine Sheppard MD Unavailable Unavailable Catherine Sheppard MD Unavailable Unavailable Catherine Sheppard MD Unavailable Unavailable Catherine Sheppard MD Unavailable Unavailable Catherine Sheppard MD Unavailable Unavailable Catherine Sheppard MD Unavailable Unavailable Catherine Sheppard MD Unavailable Unavailable Catherine Sheppard MD Unavailable Unavailable Catherine Sheppard MD Unavailable Unavailable Catherine Sheppard MD Unavailable Unavailable Ali, Catherine MD Unavailable Unavailable Ali, Catherine MD Unavailable Unavailable Ali, Catherine MD Unavailable Unavailable Ali, Catherine MD Unavailable Unavailable Ali, Catherine MD Unavailable Unavailable Ali, Catherine MD Unavailable Unavailable Ali, Catherine MD Unavailable Unavailable Ali, Catherine MD Unavailable Unavailable Re-disclosure Warning The records that you are about to access may contain information from federally-assisted alcohol or drug abuse programs. If such information is present, then the following federally mandated warning applies: This information has been disclosed to you from records protected by federal confidentiality rules (42 CFR part 2). The federal rules prohibit you from making any further disclosure of this information unless further disclosure is expressly permitted by the written consent of the person to whom it pertains or as otherwise permitted by 42 CFR part 2. A general authorization for the release of medical or other information is NOT sufficient for this purpose. The Federal rules restrict any use of the information to criminally investigate or prosecute any alcohol or drug abuse patient.The records that you are about to access may contain highly sensitive health information, the redisclosure of which is protected by Article 27-F of the [facility] Public Health law. If you continue you may have access to information: Regarding HIV / AIDS; Provided by facilities licensed or operated by the [facility] Office of Mental Health; or Provided by the [facility] Office for People With Developmental Disabilities. If such information is present, then the following [facility] mandated warning applies: This information has been disclosed to you from confidential records which are protected by state law. State law prohibits you from making any further disclosure of this information without the specific written consent of the person to whom it pertains, or as otherwise permitted by law. Any unauthorized further disclosure in violation of state law may result in a fine or usp sentence or both. A general authorization for the release of medical or other information is NOT sufficient authorization for further disc losure. Encounters Encounter Providers Location Date Indications Data Source(s ) Outpatient Attender: Catherine Sheppard MD Main office - [place] 05/10/2020 12:30:00 PM EDT [facility] ([facility]anda joseph, ) Outpatient 01/26/2020 04:41:00 AM EDT [facility] Outpatient Attender: Catherine Sheppard MD Main office - [place] 11/24/2019 12:30:00 PM EDT [facility] ([facility] jake, ) Medications Medication Brand Name Start Date Product Form Dose Route Admi nistrative Instructions Pharmacy Instructions Status Indications Reaction Description Data Source(s) Ibuprofen 800 MG Oral Tablet Ibuprofen 05/01/2020 12:00:00 AM EDT ORAL active [facility] ([facility], ) tizanidine 4 MG Oral Tablet Tizanidine HCL 05/01/2020 12:00:00 AM EDT ORAL active [facility] ([facility], ) topiramate 100 MG Oral Tablet Topiramate 02/24/2020 12:00:00 AM EDT ORAL active [facility] ([facility], ) Sumatriptan 100 MG Oral Tablet Sumatriptan Succinate 11/24/2019 12:00:00 AM EDT ORAL active [facility] ( [facility], ) Insurance Providers Payer name Policy type / Coverage type Policy ID Covered alliance party ID Covered alliance party's relationship to razo Policy Razo Plan Information [facility] HUMANA [facility] [id number] HUMANA [facility] REG O [id number] S [id number] [facility] [id number] HU2 [id number] [facility] [id number] S [id number] Problems, Conditions, and Diagnoses Code Display Name Description Problem Type Effective Dates Data Source(s) 69489879 Central nervous system complication Cent ral nervous system complication Problem 02/24/2020 12:00:00 AM EDT [facility] ([facility], ) [id number] Orthostatic hypotension Orthostatic hypotension Proble m 02/24/2020 12:00:00 AM EDT [facility] ([facility], ) 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 Problem 020 12:00:00 AM EDT [facility] ([facility], ) [id number] Migraine without aura, not refractory Mi graine without aura, not refractory Problem 11/24/2019 12:00:00 AM EDT [facility] ([facility], ) Surgeries/Procedures Procedure Description Date Indications Data Source(s) TSTG ANS FUNCJ CARDIOVAGAL INNERVAJ PARASYMP 0 12:00:00 AM EDT [facility] ([facility], ) TSTG ANS FUNCJ CARDIOVAGAL INNERVAJ PARASYMP 0 12:00:00 AM EDT [facility] ([facility], ) TESTING AUTONOMIC NERVOUS SYSTEM FUNCTION 01/05/2020 1 2:00:00 AM EDT [facility] ([facility], ) TESTING AUTONOMIC NERVOUS SYSTEM FUNCTION 01/05/2020 1 2:00:00 AM EDT [facility] ([facility], ) MRI BRAIN BRAIN STEM W/O CONTRAST MATERIAL 12/04/2019 12:00:00 AM EDT [facility] ([facility], ) MRI BRAIN BRAIN STEM W/O CONTRAST MATERIAL 12/04/2019 12:00:00 AM EDT [facility] ([facility], )
[2020-09-15] MEDS ORDERED: NS 1,000 ML IV ONE (16:30)
[2020-09-15 16:51] LABS: BASO % 0.4 % (0.0-1.0); EOS # 0.1 10^3/uL (0.0-0.5); EOS % 1.4 % (0.0-3.0); HEMATOCRIT 37.5 % (36.0-47.0); HEMOGLOBIN 12.2 g/dl (12.0-15.5); LYMPH # 2.5 10^3/uL (1.5-5.0); LYMPH % 29.3 % (24.0-44.0); MEAN CORPUSCULAR HEMOGLOBIN 27.9 pg (27.0-33.0); MEAN CORPUSCULAR HGB CONC 32.5 g/dl (32.0-36.5); MEAN CORPUSCULAR VOLUME 85.6 fl (80.0-96.0); MONO # 0.6 10^3/uL (0.0-0.8); MONO % 6.8 % (0.0-5.0); NEUTROPHILS # 5.3 10^3/uL (1.5-8.5); NEUTROPHILS % 61.7 % (36.0-66.0); PLATELET COUNT, AUTOMATED 248 10^3/uL (150-450); RED BLOOD COUNT 4.38 10^6/uL (4.00-5.40); WHITE BLOOD COUNT 8.5 10^3/uL (4.0-10.0)
--- OUTSIDE RECORDS SUMMARY | 2020-09-15 16:56 | CCD ---
Author Author [facility] Organization [facility] Address Unknown Phone Unavailable Care Team Providers Care Used Car Renovator Name Role Phone Catherine Sheppard MD Unavailable [...] is protected by Article 27-F of the [facility] Public Health law. If you continue you may have access to information: Regarding HIV / AIDS; Provided by facilities licensed or operated by the [facility] Office of Mental Health; or Provided by the [facility] Office for People With Developmental Disabilities. If such information is present, then the following [facility] mandated warning applies: This information has been [...] law may result in a fine or chcf sentence or both. A general authorization for the release of medical or other information is NOT sufficient authorization for further disc losure. Encounters Encounter Providers Location Date Indications Data Source(s ) Outpatient Attender: Catherine Sheppard MD Main office - [place] 05/10/2020 12:30:00 PM EDT [facility] ([facility] Fernanda joseph, ) Outpatient 01/26/2020 04:41:00 AM EDT [facility] Outpatient Attender: Catherine Sheppard MD Main office - [place] 11/24/2019 12:30:00 PM EDT [facility] ([facility] jake, ) Medications Medication Brand Name Start Date Product Form Dose Route Admi nistrative Instructions Pharmacy Instructions Status Indications Reaction Description Data Source(s) Ibuprofen 800 MG Oral Tablet Ibuprofen 05/01/2020 12:00:00 AM EDT ORAL active [facility] ([facility], ) tizanidine 4 MG Oral Tablet Tizanidine HCL 05/01/2020 12:00:00 AM EDT ORAL active [facility] ([facility], ) topiramate 100 MG Oral Tablet Topiramate 02/24/2020 12:00:00 AM EDT ORAL active [facility] ([facility], ) Sumatriptan 100 MG Oral Tablet Sumatriptan Succinate 11/24/2019 12:00:00 AM EDT ORAL active [facility] ( [facility], ) Insurance Providers Payer name Policy type / Coverage type Policy ID Covered libertarian ID Covered libertarian's relationship to razo Policy Razo Plan Information [facility] [employer]MANA [facility] [id number] HUMANA [facility] REG O [id number] S [id number] [facility] [id number] HU2 [id number] [facility] [id number] S [id number] Problems, Conditions, and Diagnoses Code Display Name Description Problem Type Effective Dates Data Source(s) 57400203 Central nervous system complication Cent ral nervous system complication Problem 02/24/2020 12:00:00 AM EDT [facility] ([facility], ) [id number] Orthostatic hypotension Orthostatic hypotension Proble m 02/24/2020 12:00:00 AM EDT [facility] ([facility], ) 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 Problem 020 12:00:00 AM EDT [facility] ([facility], ) [id number] Migraine without aura, not refractory Mi graine without aura, not refractory Problem 11/24/2019 12:00:00 AM EDT [facility] ([facility], ) Surgeries/Procedures Procedure Description Date Indications Data Source(s) TSTG ANS FUNCJ CARDIOVAGAL INNERVAJ PARASYMP 0 12:00:00 AM EDT [facility] ([facility], ) TSTG ANS FUNCJ CARDIOVAGAL INNERVAJ PARASYMP 0 12:00:00 AM EDT [facility] ([facility], ) TESTING AUTONOMIC NERVOUS SYSTEM FUNCTION 01/05/2020 1 2:00:00 AM EDT [facility] ([facility], ) TESTING AUTONOMIC NERVOUS SYSTEM FUNCTION 01/05/2020 1 2:00:00 AM EDT [facility] ([facility], ) MRI BRAIN BRAIN STEM W/O CONTRAST MATERIAL 12/04/2019 12:00:00 AM EDT [facility] ([facility], ) MRI BRAIN BRAIN STEM W/O CONTRAST MATERIAL 12/04/2019 12:00:00 AM EDT [facility] ([facility], )
[2020-09-15 17:00] LABS: PROTHROMBIN TIME 13.4 SECONDS (12.5-14.3)
[2020-09-15 17:01] LABS: PARTIAL THROMBOPLASTIN TIME 30.2 SECONDS (24.2-38.5)
[2020-09-15 17:10] LABS: ALBUMIN 3.8 GM/DL (3.2-5.2); ALT/SGPT 15 U/L (12-78); BILIRUBIN,DIRECT < 0.1 MG/DL (0.0-0.2); BILIRUBIN,TOTAL 0.3 MG/DL (0.2-1.0); BLOOD UREA NITROGEN 16 MG/DL (7-18); CALCIUM LEVEL 9.5 MG/DL (8.5-10.1); CARBON DIOXIDE LEVEL 25 MEQ/L (21-32); CHLORIDE LEVEL 105 MEQ/L (98-107); CREATININE FOR GFR 1.09 MG/DL (0.55-1.30); GLOMERULAR FILTRATION RATE > 60.0 (>60); GLUCOSE, FASTING 89 MG/DL (70-100); LIPASE 136 U/L (73-393); SODIUM LEVEL 138 MEQ/L (136-145); TOTAL PROTEIN 7.1 GM/DL (6.4-8.2)
[2020-09-15] MEDS ORDERED: KETOROLAC 30 MG/ML 1ML VIAL IV ONE (17:45)
[2020-09-15] MEDS ORDERED: ONDANSETRON 4MG/2ML VIAL IV ONE (17:45)
--- NOTE | 2020-09-15 18:43 | REP ---
INDICATION: abd cramps. COMPARISON: None. TECHNIQUE: Single AP view abdomen and pelvis. FINDINGS: Air is scattered throughout nondistended small and large bowel loops in a nonspecific pattern. There is no compelling evidence for bowel obstruction. There is mild scattered fecal material throughout the colon. No abnormal calcifications are seen. The visualized osseous structures are unremarkable. IMPRESSION: Nonspecific bowel gas pattern. No compelling radiographic evidence for bowel obstruction. <Electronically signed by Hernando Melton > 09/15/20 [id number]
[2020-09-15] MEDS ORDERED: METOCLOPRAMIDE INJ 10MG/2ML VIAL (J2765 PER 1) IV ONE (19:15)
[2020-09-15] MEDS ORDERED: DICYCLOMINE 10 MG CAP PO ONE (19:15)
[2020-09-15] MEDS ORDERED: DICY20TA11 PO (21:08)
[2020-09-15 21:13] VITALS: BP 105/64
[2020-09-15] MEDS ORDERED: ANUS25SU PR (21:13)
== END 2020-09-15 21:56 | disposition home or self-care (01) ==
LOC: M ED 15:31
DX: R10.9 Unspecified abdominal pain (principal); K92.1 Melena; G43.909 Migraine, unspecified, not intractable, without status migrainosus; F33.9 Major depressive disorder, recurrent, unspecified; F41.9 Anxiety disorder, unspecified; G93.5 Compression of brain; Z91.040 Latex allergy status; Z91.048 Other nonmedicinal substance allergy status; Z79.899 Other long term (current) drug therapy
CPT/HCPCS: 74018; 80048; 80076; 83690; 84702; 85025; 85610; 85730; 96361; 96374; 96375; 99284; J1885; J2405; J2765

== ENCOUNTER 2020-12-06 16:20 | Emergency (ER) | payer OTHER ==
[~2020-12-06] VITALS: Ht 162.6 cm; Wt 105.6 kg
[~2020-12-06 16:20] MED LIST changes: +ANUS25SU PR; +DICY20TA11 PO
[2020-12-06] MEDS ORDERED: FLUO20CA22 PO (16:28)
[2020-12-06] MEDS ORDERED: KETOROLAC 30 MG/ML 1ML VIAL IV ONE (19:15)
[2020-12-06] MEDS ORDERED: NS 1,000 ML IV ONE (19:15)
--- NOTE | 2020-12-06 19:19 | REP ---
INDICATION: RUQ pain into back. COMPARISON: None. TECHNIQUE: Real-time sonographic evaluation of right upper quadrant performed. FINDINGS: A large mobile gallstone is seen in the gallbladder. There is no gallbladder wall thickening or pericholecystic fluid.. There is no intrahepatic or extrahepatic biliary dilatation, common bile duct measures 3 mm in maximum diameter. The liver demonstrates homogeneous echotexture with no gross mass. The visualized pancreas is grossly unremarkable. The right kidney demonstrates no hydronephrosis, with a normal size of 9.7 cm in length. No free fluid is seen. IMPRESSION: Large mobile gallstone in the gallbladder. No gallbladder wall thickening, pericholecystic fluid or biliary dilatation. <Electronically signed by Hernando Melton > 12/06/20 [id number]
[2020-12-06 19:28] LABS: BASO % 0.3 % (0.0-1.0); EOS # 0.2 10^3/uL (0.0-0.5); EOS % 1.6 % (0.0-3.0); HEMATOCRIT 40.3 % (36.0-47.0); HEMOGLOBIN 12.8 g/dl (12.0-15.5); LYMPH # 3.5 10^3/uL (1.5-5.0); LYMPH % 26.8 % (24.0-44.0); MEAN CORPUSCULAR HEMOGLOBIN 27.4 pg (27.0-33.0); MEAN CORPUSCULAR HGB CONC 31.8 g/dl (32.0-36.5); MEAN CORPUSCULAR VOLUME 86.3 fl (80.0-96.0); MONO # 0.7 10^3/uL (0.0-0.8); MONO % 5.6 % (2.0-8.0); NEUTROPHILS # 8.4 10^3/uL (1.5-8.5); NEUTROPHILS % 65.2 % (36.0-66.0); PLATELET COUNT, AUTOMATED 289 10^3/uL (150-450); RED BLOOD COUNT 4.67 10^6/uL (4.00-5.40); WHITE BLOOD COUNT 12.9 10^3/uL (4.0-10.0)
[2020-12-06 19:44] LABS: HCG, SERUM QUALITATIVE NEGATIVE (NEGATIVE)
[2020-12-06 19:46] LABS: ALBUMIN 3.9 GM/DL (3.2-5.2); ALT/SGPT 26 U/L (12-78); BILIRUBIN,DIRECT < 0.1 MG/DL (0.0-0.2); BILIRUBIN,TOTAL 0.2 MG/DL (0.2-1.0); BLOOD UREA NITROGEN 15 MG/DL (7-18); CALCIUM LEVEL 8.9 MG/DL (8.5-10.1); CARBON DIOXIDE LEVEL 24 MEQ/L (21-32); CHLORIDE LEVEL 112 MEQ/L (98-107); CREATININE FOR GFR 1.13 MG/DL (0.55-1.30); GLOMERULAR FILTRATION RATE > 60.0 (>60); GLUCOSE, FASTING 93 MG/DL (70-100); LIPASE 157 U/L (73-393); SODIUM LEVEL 140 MEQ/L (136-145); TOTAL PROTEIN 7.2 GM/DL (6.4-8.2)
[2020-12-06] MEDS ORDERED: MORPHINE 4 MG/ML 1ML VIAL/SYRINGE (J2270) IV ONE (20:55)
[2020-12-06] MEDS ORDERED: ONDANSETRON 4MG/2ML VIAL IV ONE (20:55)
--- NOTE | 2020-12-06 20:55 | REPVR ---
PROCEDURE INFORMATION: Exam: US Nonobstetric Pelvis; Complete Exam date and time: 12/06/2020 8:03 PM Age: 30 years old Clinical indication: Pelvic pain; Additional info: Right sided pelvic pain, HX of ovarian cyst TECHNIQUE: Imaging protocol: Transabdominal pelvic nonobstetric ultrasound. Complete exam. Real time ultrasound with image documentation. COMPARISON: 1. US PELVIC NON-OB COMPLETE 08/01/2017 4:[address] ABD PELVIS WITH CONTRAST 04/10/2020 7:23:44 PM FINDINGS: Uterus/cervix: The uterus is unremarkable. Endometrium measures 8 mm in thickness. The uterus is anteverted. The uterus measures 7.1 x 3.7 by 4.8 cm. Right adnexa: The right ovary measures 5.3 by 2.4 x 4.2 cm and is elongated and enlarged. Cyst with increased peripheral color flow and slightly thick wall, with some internal echoes but no internal color flow is seen within the right ovary measuring 2.9 x 2.5 x 3.2 cm. Most likely a hemorrhagic cyst. There is color flow to the right ovary. Venous flow was observed on duplex Doppler evaluation. Left adnexa: The left ovary is normal in size and echogenicity, measuring 2.2 x 1.6 x 2.1 cm. Color flow was observed to the left ovary. Arterial flow was observed on duplex Doppler evaluation. Intraperitoneal space: There is trace free fluid in the posterior cul-de-sac. Urinary bladder: Grossly unremarkable. IMPRESSION: 1. 3.2 cm presumed hemorrhagic cyst in the right ovary, with some internal echoes and increased peripheral color flow, but no internal color flow. Follow-up not needed based on this finding alone. Recommend imaging follow-up based on patient's symptoms. 2. Trace free fluid in the posterior cul-de-sac. 3. Normal left ovary, uterus, and endometrium. Electronically signed by: Iman Grajeda On 12/06/2020 20:55:19 PM
[2020-12-06 21:04] VITALS: BP 121/73
--- NOTE | 2020-12-09 07:22 | ED PDOC ---
Post-Departure Follow-Up radiology report faxed to Dolores Brown MD Dec 09, 2020 07:22
== END 2020-12-06 22:04 | disposition home or self-care (01) ==
LOC: M ED 16:20
DX: N83.201 Unspecified ovarian cyst, right side (principal); K80.70 Calculus of gallbladder and bile duct without cholecystitis without obstruction; Z91.040 Latex allergy status; Z91.048 Other nonmedicinal substance allergy status
CPT/HCPCS: 76705; 76856; 80048; 80076; 81001; 83690; 84703; 85025; 87086; 93976; 96361; 96374; 96375; 99284; J1885; J2270; J2405

== ENCOUNTER 2020-12-08 17:59 | Emergency (ER) | payer OTHER ==
[~2020-12-08] VITALS: Ht 162.6 cm; Wt 107.0 kg
[~2020-12-08 17:59] MED LIST changes: +FLUO20CA22 PO
[2020-12-08] MEDS ORDERED: ONDANSETRON 4MG/2ML VIAL IV ONE (19:00)
[2020-12-08] MEDS ORDERED: MORPHINE 4 MG/ML 1ML VIAL/SYRINGE (J2270) IV ONE (19:00)
[2020-12-08] MEDS ORDERED: NS 1,000 ML IV ONE (19:00)
[2020-12-08 19:25] LABS: AMORPHOUS SEDIMENT SMALL (NEGATIVE); APPEARANCE, URINE CLOUDY (CLEAR); BACTERIA, URINE AUTO NEGATIVE (NEGATIVE); BILIRUBIN, URINE AUTO NEGATIVE (NEGATIVE); BLOOD, URINE BLOOD 1+ (NEGATIVE); COLOR, URINE YELLOW (YELLOW); GLUCOSE, URINE (UA) AUTO NEGATIVE (NEGATIVE); KETONE, URINE AUTO NEGATIVE (NEGATIVE); LEUKOCYTE ESTERASE, URINE AUTO 3+ (NEGATIVE); NITRITE, URINE AUTO NEGATIVE (NEGATIVE); PROTEIN, URINE AUTO NEGATIVE (NEGATIVE); RBC, URINE AUTO 1 /HPF (0-3); SPECIFIC GRAVITY URINE AUTO 1.011 (1.002-1.035); SQUAMOUS EPITHELIAL CELL UR AU 1 /HPF (0-6); UROBILINOGEN, URINE AUTO 0.2 mg/dL (0.0-2.0); WBC, URINE AUTO 2 /HPF (0-3)
[2020-12-08 19:27] LABS: BASO # 0.1 10^3/uL (0.0-0.2); BASO % 0.4 % (0.0-1.0); EOS # 0.2 10^3/uL (0.0-0.5); EOS % 1.3 % (0.0-3.0); HEMATOCRIT 38.8 % (36.0-47.0); HEMOGLOBIN 12.5 g/dl (12.0-15.5); LYMPH # 3.2 10^3/uL (1.5-5.0); LYMPH % 27.9 % (24.0-44.0); MEAN CORPUSCULAR HEMOGLOBIN 27.7 pg (27.0-33.0); MEAN CORPUSCULAR HGB CONC 32.2 g/dl (32.0-36.5); MONO # 0.8 10^3/uL (0.0-0.8); MONO % 6.6 % (2.0-8.0); NEUTROPHILS # 7.3 10^3/uL (1.5-8.5); NEUTROPHILS % 63.4 % (36.0-66.0); PLATELET COUNT, AUTOMATED 288 10^3/uL (150-450); RED BLOOD COUNT 4.51 10^6/uL (4.00-5.40); WHITE BLOOD COUNT 11.5 10^3/uL (4.0-10.0)
[2020-12-08 19:46] LABS: ALBUMIN 3.8 GM/DL (3.2-5.2); ALT/SGPT 63 U/L (12-78); BILIRUBIN,DIRECT < 0.1 MG/DL (0.0-0.2); BILIRUBIN,TOTAL 0.2 MG/DL (0.2-1.0); BLOOD UREA NITROGEN 15 MG/DL (7-18); CALCIUM LEVEL 8.7 MG/DL (8.5-10.1); CARBON DIOXIDE LEVEL 25 MEQ/L (21-32); CHLORIDE LEVEL 110 MEQ/L (98-107); CREATININE FOR GFR 1.04 MG/DL (0.55-1.30); GLOMERULAR FILTRATION RATE > 60.0 (>60); GLUCOSE, FASTING 101 MG/DL (70-100); LIPASE 190 U/L (73-393); POTASSIUM SERUM 3.7 MEQ/L (3.5-5.1); SODIUM LEVEL 141 MEQ/L (136-145); TOTAL PROTEIN 7.2 GM/DL (6.4-8.2)
[2020-12-08] MEDS ORDERED: KETOROLAC 30 MG/ML 1ML VIAL IV ONE (20:10)
[2020-12-08] MEDS ORDERED: NORCO, ANEXSIA 5/325MG TABLET (HYDROcodone/ACETAMINOPHEN) PO ONE (21:20)
[2020-12-08] MEDS ORDERED: ONDA4TAB6 PO (21:21)
[2020-12-08] MEDS ORDERED: HYDR-4571 PO (21:21)
[2020-12-08] MEDS ORDERED: PEPC1TAB5 PO (21:21)
--- NOTE | 2020-12-08 21:23 | REPVR ---
PROCEDURE INFORMATION: Exam: US Abdomen, Limited; Right Upper Quadrant Exam date and time: 12/08/2020 8:14 PM Age: 30 years old Clinical indication: Abdominal pain; Epigastric; Additional info: Ruq pain, gallstones, elevated liver enzyme TECHNIQUE: Imaging protocol: US abdomen. Real time ultrasound with image documentation. Limited exam focused on the right upper quadrant. COMPARISON: GALLBLADDER US 12/06/2020 6:31 PM FINDINGS: Liver: Unremarkable. No liver mass. Gallbladder: Least 1 large non-mobile stone in the gallbladder measuring 3.0 cm. No gallbladder wall thickening or pericholecystic fluid. Common bile duct: No biliary duct dilation. Pancreas: Visualized pancreas is unremarkable. Right kidney: Normal. No mass. No hydronephrosis. IMPRESSION: Large non mobile calculus in the gallbladder. No secondary signs of acute cholecystitis or biliary duct dilation. Electronically signed by: Robert English On 12/08/2020 21:23:34 PM
[2020-12-08 21:26] VITALS: BP 144/76
== END 2020-12-08 22:10 | disposition home or self-care (01) ==
LOC: M ED 17:59
DX: K80.70 Calculus of gallbladder and bile duct without cholecystitis without obstruction (principal); G93.5 Compression of brain; D64.9 Anemia, unspecified; F33.9 Major depressive disorder, recurrent, unspecified; F41.9 Anxiety disorder, unspecified; R51.9 Headache, unspecified; Z79.899 Other long term (current) drug therapy; Z91.040 Latex allergy status; Z91.048 Other nonmedicinal substance allergy status
CPT/HCPCS: 76705; 80048; 80076; 81001; 83690; 85025; 96361; 96374; 96375; 99284; J1885; J2270; J2405

== ENCOUNTER 2020-12-28 08:56 | Day surgery (SDC) | payer OTHER ==
[~2020-12-28] VITALS: Ht 162.6 cm; Wt 104.7 kg
[~2020-12-28 08:56] MED LIST changes: +HYDR-4571 PO; +LR 1,000 ML IV ONE; +NAPR-885; +ONDA4TAB6 PO; +PEPC1TAB5 PO; +SERT50TA29; +VITA1TAB35 PO
[2020-12-28] MEDS ORDERED: propofoL 200 MG/20 ML VIAL As Ordered ONE (10:40)
[2020-12-28] MEDS ORDERED: LIDOCAINE 2% 100MG/5ML SDV (FOR ANES.) As Ordered ONE (10:40)
[2020-12-28] MEDS ORDERED: ROCURONIUM BROMIDE 50 MG/5 ML VIAL As Ordered ONE (10:40)
[2020-12-28] MEDS ORDERED: fentaNYL 250 MCG/5 ML INJECTION (J3010) As Ordered ONE (10:40)
[2020-12-28] MEDS ORDERED: MIDAZOLAM INJ 2MG/2ML VIAL (J2250 PER 1MG) As Ordered ONE (10:40)
[2020-12-28] MEDS ORDERED: BUPIVACAINE/EPIN 0.25% 30 ML VIAL As Ordered ONE (11:47)
[2020-12-28] MEDS ORDERED: dexameTHASONE 4 MG/ML 1ML VIAL (J1100 PER 1MG) As Ordered ONE (12:29)
[2020-12-28] MEDS ORDERED: ACETAMINOPHEN 1000MG 100ML IV BTL (OFIRMEV) (J0131 PER 10MG) As Ordered ONE (12:32)
[2020-12-28] MEDS ORDERED: ONDANSETRON 4MG/2ML VIAL As Ordered ONE (12:41)
[2020-12-28] MEDS ORDERED: SUGAMMADEX SODIUM 500 MG/5 ML VIAL (BRIDION) As Ordered ONE (12:41)
[2020-12-28] MEDS ORDERED: METOCLOPRAMIDE INJ 10MG/2ML VIAL (J2765 PER 1) As Ordered ONE (12:41)
[2020-12-28] MEDS ORDERED: ONDANSETRON 4MG/2ML VIAL IV PRN (13:25)
[2020-12-28] MEDS ORDERED: oxyCODONE 5MG TAB PO PRN (13:25)
[2020-12-28] MEDS ORDERED: LR 1,000 ML IV SCH (13:25)
[2020-12-28] MEDS: fentaNYL 100 MCG/2 ML INJECTION (J3010) IV PRN ×4 (13:29→13:49)
[2020-12-28] MEDS ORDERED: NORCO, ANEXSIA 5/325MG TABLET (HYDROcodone/ACETAMINOPHEN) PO PRN (13:55)
--- NOTE | 2020-12-28 13:58 | RO ---
OPERATIVE NOTE DATE OF OPERATION: 12/28/2020 PREOPERATIVE DIAGNOSIS: Symptomatic cholelithiasis. POSTOPERATIVE DIAGNOSIS: Symptomatic cholelithiasis. PROCEDURE: Robotic cholecystectomy. SURGEON: Dr. Hernando Suárez WARRANTY ADMINISTRATOR: Allyson Melchor ANESTHESIA: General. ESTIMATED BLOOD LOSS: 5. COMPLICATIONS: None. INDICATIONS FOR PROCEDURE: Patient is a 30-year-old female who presents with symptomatic cholelithiasis. Recommendation was to proceed with robotic cholecystectomy. Risks and benefits of the procedure, not limited to, but include bleeding, infection, hernia formation, damage to surrounding structures, need for further surgery, were discussed in detail with the patient. Informed consent was obtained. Procedure was planned. DESCRIPTION OF PROCEDURE: Patient was brought back to operating room #7. After sufficient sedation, the abdomen was sterilely prepped and draped. Next, a time-out was done to confirm proper patient, proper procedure. Following that, an 8 mm incision was made in the left upper quadrant, Veress needle inserted, and the abdomen was insufflated to 15 mm of mercury. Veress needle was then removed, and an 8 mm Optiview port was used to gain access to the abdomen. Once the abdomen was entered, three more ports were placed, two in the left upper abdomen and one in the right upper quadrant. Once all the ports were placed, the head of the patient was put down slightly. The pelvic was examined. Her OB had asked me to evaluate the right ovary. I was able to elevate it up in the air using a laparoscopic grasper and took approximately eight pictures of this, and it appeared to be stable from my standpoint, but I will send pictures to Dr. Gomez for further evaluation. During the procedure, Dr. Urrutia as well came in and took a peak at the pictures I had taken to see if he wanted to do any further evaluation while she was there, but he was happy with the pictures as well. Next, the head of the bed was elevated. The robot was docked to the ports. Next, from the console the fundus of the gallbladder was elevated up toward the right shoulder. The cystic duct and cystic artery were carefully dissected free using a combination of a blunt and sharp dissection. The ducts were then both doubly clipped and cut. Gallbladder was then dissected free from the gallbladder fossa using electrocautery. Gallbladder was then placed inside of a 5 mm EndoCatch bag and brought out through the right lateral port site. Once that was completed, the right upper quadrant was examined. No signs of any bleeding. The abdomen was then desulfated. Skin incision were closed with 4-0 Vicryl subcuticular sutures. The abdomen was cleaned and dried. Steri-Strips, 4 x 4, and tape were applied, thus ending procedure.
[2020-12-28 14:50] VITALS: BP 135/66
== END 2020-12-28 15:18 | disposition home or self-care (01) ==
LOC: M SDC 08:56
PROVIDERS: ATTEND Surgery
DX: K80.10 Calculus of gallbladder with chronic cholecystitis without obstruction (principal); F41.9 Anxiety disorder, unspecified; F32.9 Major depressive disorder, single episode, unspecified; D64.9 Anemia, unspecified; M54.9 Dorsalgia, unspecified; L70.9 Acne, unspecified; Z79.899 Other long term (current) drug therapy; Z79.1 Long term (current) use of non-steroidal anti-inflammatories (NSAID); Z91.040 Latex allergy status; Z91.048 Other nonmedicinal substance allergy status; Z87.440 Personal history of urinary (tract) infections
CPT/HCPCS: 47562; 88304; J0131; J1100; J2250; J2405; J2765; J3010; S2900

== ENCOUNTER 2021-02-05 18:00 | Emergency (ER) | payer OTHER ==
[~2021-02-05] VITALS: Ht 162.6 cm; Wt 103.7 kg
[~2021-02-05 18:00] MED LIST changes: -LR 1,000 ML IV ONE
[2021-02-05] MEDS ORDERED: PROC1AER16 PR (23:21)
[2021-02-06 00:10] VITALS: BP 141/90
== END 2021-02-06 00:15 | disposition home or self-care (01) ==
LOC: M ED 18:00
DX: K64.8 Other hemorrhoids (principal); K62.5 Hemorrhage of anus and rectum; K62.89 Other specified diseases of anus and rectum; M54.9 Dorsalgia, unspecified; F41.9 Anxiety disorder, unspecified; F32.9 Major depressive disorder, single episode, unspecified; Z87.42 Personal history of other diseases of the female genital tract; G93.5 Compression of brain; R51.9 Headache, unspecified; Z87.442 Personal history of urinary calculi; Z91.040 Latex allergy status; Z91.048 Other nonmedicinal substance allergy status; Z79.899 Other long term (current) drug therapy

== ENCOUNTER 2021-02-27 14:00 | Emergency (ER) | payer OTHER ==
[~2021-02-27] VITALS: Ht 162.6 cm; Wt 104.0 kg
[~2021-02-27 14:00] MED LIST changes: +PROC1AER16 PR
[2021-02-27 14:39] LABS: BASO % 0.4 % (0.0-1.0); EOS # 0.2 10^3/uL (0.0-0.5); EOS % 2.1 % (0.0-3.0); HEMATOCRIT 38.2 % (36.0-47.0); HEMOGLOBIN 12.2 g/dl (12.0-15.5); LYMPH # 2.3 10^3/uL (1.5-5.0); LYMPH % 32.1 % (24.0-44.0); MEAN CORPUSCULAR HEMOGLOBIN 27.4 pg (27.0-33.0); MEAN CORPUSCULAR HGB CONC 31.9 g/dl (32.0-36.5); MEAN CORPUSCULAR VOLUME 85.7 fl (80.0-96.0); MONO # 0.5 10^3/uL (0.0-0.8); MONO % 7.1 % (2.0-8.0); NEUTROPHILS # 4.2 10^3/uL (1.5-8.5); NEUTROPHILS % 57.9 % (36.0-66.0); PLATELET COUNT, AUTOMATED 254 10^3/uL (150-450); RED BLOOD COUNT 4.46 10^6/uL (4.00-5.40); WHITE BLOOD COUNT 7.3 10^3/uL (4.0-10.0)
[2021-02-27 15:21] LABS: ALBUMIN 3.5 GM/DL (3.2-5.2); ALT/SGPT 16 U/L (12-78); BILIRUBIN,DIRECT < 0.1 MG/DL (0.0-0.2); BILIRUBIN,TOTAL 0.2 MG/DL (0.2-1.0); BLOOD UREA NITROGEN 8 MG/DL (7-18); CALCIUM LEVEL 8.6 MG/DL (8.5-10.1); CARBON DIOXIDE LEVEL 23 MEQ/L (21-32); CHLORIDE LEVEL 112 MEQ/L (98-107); CK-MB VALUE MASS < 1.0 NG/ML (<3.6); CPK CREATINE PHOSPHOKINASE 77 U/L (26-192); CREATININE FOR GFR 1.08 MG/DL (0.55-1.30); GLOMERULAR FILTRATION RATE > 60.0 (>60); GLUCOSE, FASTING 91 MG/DL (70-100); LIPASE 123 U/L (73-393); POTASSIUM SERUM 4.4 MEQ/L (3.5-5.1); SODIUM LEVEL 141 MEQ/L (136-145); TOTAL PROTEIN 6.6 GM/DL (6.4-8.2); TROPONIN I < 0.02 NG/ML (< 0.10)
[2021-02-27 15:27] LABS: HCG, SERUM QUALITATIVE NEGATIVE (NEGATIVE)
--- NOTE | 2021-02-27 15:35 | REP ---
INDICATION: R upper chest discomfort 10 days COMPARISON: 06/15/2020 TECHNIQUE: PA and lateral. FINDINGS: The mediastinum and cardiac silhouette are normal. The lung lyles are clear and without acute consolidation, effusion, or pneumothorax. The skeletal structures are intact and normal. IMPRESSION: No acute cardiopulmonary process. <Electronically signed by Jeferson Hernandez > 02/27/21 1539
[2021-02-27] MEDS ORDERED: PROT1TAB2 PO (15:58)
[2021-02-27] MEDS ORDERED: GI COCKTAIL 50ML BTL(HYOSCYAMINE/MAALOX/LIDOCAINE VISCOUS)(1:3:1) PO ONE (16:00)
[2021-02-27 16:08] VITALS: BP 123/81
--- NOTE | 2021-02-28 11:01 | ECGEPIP ---
[facility] - ED Test Date: 2021-02-27 Pat Name: LEXX JULIO Department: Room: - Gender: Female Personnel Placement Specialist: : [id number] Requested By: CHRIS Rivas Order Number: [id number] Reading MD: Dolores Vann Measurements Intervals [place] Rate: 94 P: 46 WI: 164 QRS: 19 QRSD: 84 T: 19 QT: 358 QTc: 447 Interpretive Statements Normal sinus rhythm NSTTW abnormalities increased rate 06/15/20 Electronically Signed on 02-28-2021 11:01:29 EDT by Dolores Vann
== END 2021-02-27 16:23 | disposition home or self-care (01) ==
LOC: M ED 14:00
DX: R10.10 Upper abdominal pain, unspecified (principal); R07.89 Other chest pain; R11.0 Nausea; G93.5 Compression of brain; G43.909 Migraine, unspecified, not intractable, without status migrainosus; Z87.442 Personal history of urinary calculi; Z79.899 Other long term (current) drug therapy; Z91.040 Latex allergy status; Z91.048 Other nonmedicinal substance allergy status